=== PATIENT | male | born 2000 | race Two or more races ===

== ENCOUNTER 2024-06-10 10:24 | Emergency (ER) | payer MEDICAID, OTHER ==
[~2024-06-10] VITALS: Ht 180.3 cm; Wt 80.5 kg
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
[2024-06-10 10:51] VITALS: BP 158/104; PULSE 84; RESP 18; TEMP 97.8; O2SAT 99
--- NOTE | 2024-06-10 11:14 | DVH ---
CLINICAL INDICATION: possible fracture TECHNIQUE: XY R HAND 3 VIEW XRAY Comparison: None FINDINGS/IMPRESSION: Acute fracture through the volar aspect of the 5th middle phalanx with intra-articular extension. The re soft tissue swelling about the 5th proximal interphalangeal joint. The joint spaces are maintaine d. No dislocation.
[2024-06-10] MEDS ORDERED: IBUP-1454 PO (12:31)
[2024-06-10] MEDS ORDERED: CEPH500C PO (12:31)
[2024-06-10] MEDS: cefTRIAXone SOD 1,000 MG VL IM ONE (12:43)
== END 2024-06-10 12:31 | disposition home or self-care (01) ==
LOC: ER 10:24
DX: S62.614A Displaced fracture of proximal phalanx of right ring finger, initial encounter for closed fracture (principal); W45.8XXA Other foreign body or object entering through skin, initial encounter; Y93.89 Activity, other specified; Y92.89 Other specified places as the place of occurrence of the external cause; Y99.8 Other external cause status
CPT/HCPCS: 29125; 73130; 96372; 99283; J0696